=== PATIENT | male | born 1950 | race Hispanic/Latino ===

== ENCOUNTER 2018-01-23 08:00 | Observation (INO) | payer OTHER ==
[2018-01-23 08:08] VITALS: BMI 26.4
--- NOTE | 2018-01-23 08:20 | ED PDOC ---
HPI: Chest Pain Time Seen by Provider: 01/23/18 08:04 History Per: Patient Onset/Duration Of Symptoms: Days (1) Current Symptoms Are (Timing): Still Present Severity: Moderate Quality: Sharp Associated Symptoms: denies: Dyspnea, Syncope Modifying Factors: None Exacerbating Factors: None Alleviating Factors: None Additional Complaint(s): Sharp chest pain radiatingg to back assoc with generalized weakness. Denies palpitations, SOB or dizziness. Past Medical History Vital Signs: Last Vital Signs Temp 97.6 F 01/23/18 08:08 Pulse 84 01/23/18 08:08 Resp 17 01/23/18 08:08 BP 101/64 01/23/18 08:08 Pulse Ox 100 01/23/18 08:08 - Medical History PMH: Hypercholesterolemia Denies: Chronic Kidney Disease Other PMH: Raynauds disease - Family History Family History: States: Unknown Family Hx - Immunization History Hx Tetanus Toxoid Vaccination: Yes Hx Influenza Vaccination: No Hx Pneumococcal Vaccination: No - Home Medications Home Medications: Ambulatory Orders Medication Instructions Recorded Cefpodoxime [Vantin] 100 mg PO Q12 #20 tab 10/06/15 Multivitamin [Multi-Vitamin Daily] 1 tab PO DAILY 10/06/15 Bridgman-3 Acid Ethyl Esters [Lovaza] 1 gm PO DAILY 10/06/15 - Allergies Allergies/Adverse Reactions: Allergies Allergy/AdvReac Type Severity Reaction Status Date / Time Sulfa (Sulfonamide Allergy RASH Verified 10/06/15 13:50 Antibiotics) Review of Systems ROS Statement: Except As Marked, All Systems Reviewed And Found Negative Constitutional: Positive for: Weakness Cardiovascular: Positive for: Chest Pain Physical Exam - Reviewed Nursing Documentation Reviewed: Yes Vital Signs Reviewed: Yes - Physical Exam Appears: Positive for: Non-toxic, No Acute Distress Head Exam: Positive for: ATRAUMATIC, NORMAL INSPECTION, NORMOCEPHALIC Skin: Positive for: Normal Color, Warm, DRY Eye Exam: Positive for: EOMI, Normal appearance, PERRL ENT: Positive for: Normal ENT Inspection Neck: Positive for: Normal, Painless ROM Cardiovascular/Chest: Positive for: Irregularly Irregular Respiratory: Positive for: CNT, Normal Breath Sounds Gastrointestinal/Abdominal: Positive for: Normal Exam, Soft Back: Positive for: Normal Inspection Extremity: Positive for: Normal ROM Neurologic/Psych: Positive for: Alert, Oriented - ECG O2 Sat by Pulse Oximetry: 100 Medical Decision Making Medical Decision Making: Chadsvasc2 score 0. EKG afib with mod response. No acute ST changes Disposition - Clinical Impression Clinical Impression: New onset a-fib - Patient ED Disposition Is Patient to be Admitted: Yes - Disposition Disposition Time: 08:23 Condition: FAIR - Pt Status Changed To: Hospital Disposition Of: Observation - POA Present On Arrival: None
[2018-01-23 09:29] LABS: BASO % 0.8 % (0.0-2.0); EOS # 0.1 K/uL (0.0-0.7); EOS % 1.4 % (0.0-4.0); HEMOGLOBIN 15.1 g/dL (12.0-18.0); LYMPH # 1.3 K/uL (1.0-4.3); LYMPH % 26.7 % (20.0-40.0); MEAN CELL VOLUME 91.1 fl (80.0-94.0); MEAN PLATELET VOLUME 8.5 fl (7.2-11.7); MONO # 0.5 K/uL (0.0-0.8); MONO % 10.9 % (0.0-10.0); NEUT # 2.9 K/uL (1.8-7.0); NEUT % 60.2 % (50.0-75.0); NRBC % 0.2 % (0.0-0.0); RBC 4.89 Mil/uL (4.40-5.90); RED CELL DISTRIBUTION WIDTH 13.2 % (11.5-14.5); WHITE BLOOD COUNT 4.9 K/uL (4.8-10.8)
--- NOTE | 2018-01-23 09:33 | RAD ---
Date of service: 01/23/2018 HISTORY: Chest pain COMPARISON: Chest radiographs 10/06/2015. TECHNIQUE: Chest PA and lateral FINDINGS: LUNGS: No active pulmonary disease. PLEURA: No significant pleural effusion identified. No pneumothorax apparent. CARDIOVASCULAR: Normal. OSSEOUS STRUCTURES: No significant abnormalities. VISUALIZED UPPER ABDOMEN: Normal. OTHER FINDINGS: None. IMPRESSION: No interval acute cardiopulmonary disease appreciated.
[2018-01-23 09:42] LABS: BLOOD UREA NITROGEN 18 mg/dl (9-20); CALCIUM 9.1 mg/dL (8.4-10.2); GFR NON-AFRICAN AMERICAN > 60
[2018-01-23 09:43] LABS: ALB/GLOB RATIO 1.2 (1.0-2.1); ALT/SGPT 26 U/L (21-72); AST/SGOT 28 U/L (17-59)
[2018-01-23] MEDS ORDERED: Digoxin 500 mcg/2ml (0.5 mg/2ml) Inj IVP ONE (09:48)
[2018-01-23] MEDS ORDERED: Digoxin 500 mcg/2ml (0.5 mg/2ml) Inj ONE (09:54)
[2018-01-23 10:00] LABS: T4 6.83 ug/dl (5.5-11.0)
[2018-01-23 10:13] LABS: INR 1.1; PROTHROMBIN TIME 12.6 Seconds (9.8-13.1)
--- NOTE | 2018-01-23 11:21 | CARD ---
APPROVED REPORT Date of service: 01/23/2018 EKG Measurement Heart [id number] <Conclusion> Atrial fibrillation with rapid ventricular response Nonspecific ST abnormality Abnormal ECG
[2018-01-23] MEDS ORDERED: Enoxaparin 100 mg Syringe SC SCH ×2 (11:30→11:39)
--- NOTE | 2018-01-23 18:10 | CARD ---
APPROVED REPORT Date of service: 01/23/2018 EXAM: Two-dimensional and M-mode echocardiogram with Doppler and color Doppler. Other Information Quality : GoodRhythm : Atrial Fibrillation INDICATION New onset Atrial Fibrillation 2D DIMENSIONS IVSd1.06 (0.7-1.1cm)LVDd3.95 (3.9-5.9cm) LVOT Diameter1.60 (1.8-2.4cm)PWd0.98 (0.7-1.1cm) IVSs1.46 (0.8-1.2cm)LVDs2.13 (2.5-4.0cm) FS (%) 46.3 %PWs1.49 (0.8-1.2cm) M-Mode DIMENSIONS Left Atrium (MM)4.20 (2.5-4.0cm)Aortic Root2.63 (2.2-3.7cm) Aortic Valve AoV Peak Unsicewl186.1cm/sAoV VTI24.8cmAO Peak GR.5mmHg LVOT Peak Iterymru958.4cm/sLVOT VTI19.72cmAO Mean GR.3mmHg GERMAN (VMAX)0.18zl4EPW (VTI)0.74cm2 Mitral Valve E/A ratio0.0 TDI E/Lateral E'0.0E/Medial E'0.0 Tricuspid Valve TR Peak Uewilnmh110yx/sRAP IZCREYDV25nqOzBI Peak Gr.22mmHg [id number] LEFT VENTRICLE The left ventricle is normal size. There is normal left ventricular wall thickness. The left ventricular systolic function is normal. The estimated ejection fraction is 55-60% No regional wall motion abnormalities noted.. The left ventricular diastolic function cannot be assessed due to underlying atrial fibrillation. No left ventricle thrombus noted on this study. There is no ventricular septal defect visualized. There is no left ventricular aneurysm. There is no mass noted in the left ventricle. RIGHT VENTRICLE The right ventricle is normal size. There is normal right ventricular wall thickness. The right ventricular systolic function is normal. ATRIA The left atrium is mildly dilated. The right atrium size is normal. The interatrial septum is intact with no evidence for an atrial septal defect. AORTIC VALVE The aortic valve is normal in structure. No aortic regurgitation is present. There is no aortic valvular stenosis. There is no aortic valvular vegetation. MITRAL VALVE The mitral valve is normal in structure. There is no evidence of mitral valve prolapse. There is no mitral valve stenosis. There is mild mitral valve regurgitation noted. TRICUSPID VALVE The tricuspid valve is normal in structure. There is mild tricuspid valve regurgitation noted.RVSP is calculated at 23 mm Hg. There is no tricuspid valve prolapse or vegetation. There is no tricuspid valve stenosis. PULMONIC VALVE The pulmonary valve is normal in structure. There is no pulmonic valvular regurgitation. There is no pulmonic valvular stenosis. GREAT VESSELS The aortic root is normal in size. The ascending aorta is normal in size. The pulmonary artery is normal. The IVC is normal in size and collapses >50% with inspiration. PERICARDIAL EFFUSION There is no pericardial effusion. There is no pleural effusion. <Conclusion> The estimated ejection fraction is 55-60% The left ventricular diastolic function cannot be assessed due to underlying atrial fibrillation. The left atrium is mildly dilated. There is mild mitral valve regurgitation noted. There is mild tricuspid valve regurgitation noted. RVSP is calculated at 23 mm Hg.
--- NOTE | 2018-01-23 19:58 | CP.PCM.CON ---
History of Present Illness - History of Present Illness History of Present Illness: I was asked to evaluate patient by Dr Londono. Patient is a 68 year old male with no PMH who presents with chest pain and dyspnea. The patient states symptom have occurred for the last week. He feels dyspneic and fatigued. He developed chest pain one day prior to admission. He presented to [facility] and was found to be in atrial fibrillation with rapid ventricular response. The patient was given cardizem, and digoxin. He currently is in sinus rhythm. Review of Systems - Constitutional Constitutional: absent: As Per HPI, Anorexia, Chills, Daytime Sleepiness, Exce ssive Sweating, Fatigue, Fever, Frequent Falls, Headache, Increased Appetite, Lethargy, Malaise, Night Sweats, Snoring, Sleep Apnea, Weight Gain, Weight Loss, Weakness, Other - EENT Eyes: absent: As Per HPI, Blind Spots, Blurred Vision, Change in Vision, Decrea sed Night Vision, Diplopia, Discharge, Dry Eye, Exophthalmos, Floaters, Irritation, Itchy Eyes, Loss of Peripheral Vision, Pain, Photophobia, Requires Corrective Lenses, Sees Flashes, Spots in Vision, Tunnel Vision, Other Visual Disturbances, Loss of Vision, Other Ears: absent: As Per HPI, Decreased Hearing, Ear Discharge, Ear Pain, Tinnitus, Abnormal Hearing, Disequilibrium, Dizziness, Other Nose/Mouth/Throat: absent: As Per HPI, Epistaxis, Nasal Congestion, Nasal Discharge, Nasal Obstruction, Nasal Trauma, Nose Pain, Post Nasal Drip, Sinus Pa in, Sinus Pressure, Bleeding Gums, Change in Voice, Dental Pain, Dry Mouth, Dysphagia, Halitosis, Hoarsness, Lip Swelling, Mouth Lesions, Mouth Pain, Odynophagia, Sore Throat, Throat Swelling, Tongue Swelling, Facial Pain, Neck Pain, Neck Mass, Other - Cardiovascular Cardiovascular: Chest Pain, Dyspnea - Respiratory Respiratory: absent: As Per HPI, Cough, Dyspnea, Hemoptysis, Dyspnea on Exertion, Wheezing, Snoring, Stridor, Pain on Inspiration, Chest Congestion, Excessive Mucous Production, Change in Mucous Color, Pain with Coughing, Other - Gastrointestinal Gastrointestinal: absent: As Per HPI, Abdominal Pain, Belching, Bloating, Change in Bowel Habits, Change in Stool Character, Coffee Ground Emesis, Constipation, Cramping, Diarrhea, Dyspepsia, Dysphagia, Early Satiety, Excessive Flatus, Fecal Incontinence, Heartburn, Hematemesis, Hematochezia, Loose Stools, Melena, Na usea, Odynophagia, Temesmus, Vomiting, Other - Genitourinary Genitourinary: absent: As Per HPI, Change in Urinary Stream, Difficulty Urinating, Dysuria, Flank Pain, Hematuria, Pyuria, Nocturia, Urinary Incontinence, Urinary Frequency, Urinary Hesitance, Urinary Urgency, Voiding Freq/Small Amts, Freq UTI, Hx Renal/Bladder Calculi, Hx /Renal Surgery, Bladder Distension, Other - Musculoskeletal Musculoskeletal: absent: As Per HPI, Abnormal Gait, Arthralgias, Atrophy, Back Pain, Deformity, Joint Swelling, Limited Range of Motion, Loss of Height, Muscle Cramps, Muscle Weakness, Myalgias, Neck Pain, Numbness, Radiating Pain into Limb, Stiffness, Tingling, Other - Integumentary Integumentary: absent: As Per HPI, Acne, Alopecia, Bleeding Lesions, Change in Hair, Change in Nails, Change in Pigmentation, Changing Lesions, Dry Skin, Erythema, Furuncle, Hirsutism, Lesions, New Lesions, Non-Healing Lesions, Photosensitivity, Pruritus, Rash, Skin Pain, Skin Ulcer, Sores, Striae, S welling, Unusual Bruising, Wounds, Jaundice, Other - Neurological Neurological: absent: As Per HPI, Abnormal Gait, Abnormal Hearing, Abnormal Movements, Abnormal Speech, Behavioral Changes, Burning Sensations, Confusion, Convulsions, Disequilibrium, Dizziness, Numbness, Focal Weakness, Frequent Falls, Headaches, Lack of Coordination, Loss of Vision, Memory Loss, Paresthesias, Radicular Pain, Restless Legs, Sensory Deficit, Syncope, Tingling, Tremor, Vertigo, Weakness, Other Visual Disturbances, Other - Psychiatric Psychiatric: absent: As Per HPI, Abnormal Sleep Pattern, Anhedonia, Anxiety, Auditory Hallucinations, Behavioral Changes, Change in Appetite, Change in Libido, Confusion, Depression, Difficulty Concentrating, Hallucinations, Homicidal Ideation, Hopelessness, Irritability, Memory Loss, Mood Swings, Panic Attacks, Paranoia, Suicidal Ideation, Visual Hallucinations, Tactile Hallucinations, Other - Endocrine Endocrine: absent: As Per HPI, Change in Body Appearance, Change in Libido, Cold Intolorance, Deepening of Voice, Excessive Sweating, Fatigue, Flushing, Heat Intolorance, Increase in Ring/Shoe/Hat Size, Palpitations, Polydipsia, Polyphagia, Polyuria, Other - Hematologic/Lymphatic Hematologic: absent: As Per HPI, Easy Bleeding, Easy Bruising, Lymphadenopathy, Other Past Patient History - Past Medical History & Family History Past Medical History?: Yes - Past Social History Smoking Status: Former Smoker - CARDIAC Hx Cardiac Disorders: Yes Hx Atrial Fibrillation: Yes Hx Hypercholesterolemia: Yes - PULMONARY Hx Respiratory Disorders: No - NEUROLOGICAL Hx Neurological Disorder: No - HEENT Hx HEENT Problems: No - RENAL Hx Chronic Kidney Disease: No - ENDOCRINE/METABOLIC Hx Endocrine Disorders: No - HEMATOLOGICAL/ONCOLOGICAL Hx Blood Disorders: No Hx AIDS: No Hx Human Immunodeficiency Virus (HIV): No - INTEGUMENTARY Hx Dermatological Problems: No - MUSCULOSKELETAL/RHEUMATOLOGICAL Hx Musculoskeletal Disorders: Yes Hx Falls: No - GASTROINTESTINAL Hx Gastrointestinal Disorders: No - GENITOURINARY/GYNECOLOGICAL Hx Genitourinary Disorders: No - PSYCHIATRIC Hx Psychophysiologic Disorder: No Hx Substance Use: No - SURGICAL HISTORY Hx Surgeries: Yes Hx Orthopedic Surgery: Yes Other/Comment: Bilateral Achilles tendon repair; Right medial meniscal tear repair. - ANESTHESIA Hx Anesthesia: Yes Hx Anesthesia Reactions: No Hx Malignant Hyperthermia: No Has any member of the family had a problem w/ anesthesia?: No Meds Allergies/Adverse Reactions: Allergies Allergy/AdvReac Type Severity Reaction Status Date / Time Sulfa (Sulfonamide Allergy RASH Verified 01/23/18 08:47 Antibiotics) Physical Exam - Constitutional Appears: Non-toxic - Head Exam Head Exam: NORMAL INSPECTION - Eye Exam Eye Exam: Normal appearance - ENT Exam ENT Exam: Mucous Membranes Moist - Neck Exam Neck exam: Positive for: Full Rom - Respiratory Exam Respiratory Exam: Decreased Breath Sounds - Cardiovascular Exam Cardiovascular Exam: REGULAR RHYTHM - GI/Abdominal Exam GI & Abdominal Exam: Normal Bowel Sounds - Rectal Exam Rectal Exam: Deferred - Extremities Exam Extremities exam: Negative for: pedal edema - Back Exam Back exam: NORMAL INSPECTION - Neurological Exam Neurological exam: Alert, Oriented x3 - Psychiatric Exam Psychiatric exam: Normal Affect - Skin Skin Exam: Normal Color Results - Vital Signs Recent Vital Signs: Last Vital Signs Temp 97.8 F 01/23/18 19:33 Pulse 53 L 01/23/18 19:33 Resp 20 01/23/18 19:33 BP 101/55 L 01/23/18 19:33 Pulse Ox 99 01/23/18 19:33 - Labs Result Diagrams: 01/23/18 09:17 01/23/18 09:17 Labs: Laboratory Results - last 24 hr 01/23/18 01/23/18 01/23/18 05:45 09:17 09:17 WBC 4.9 RBC 4.89 Hgb 15.1 Hct 44.5 MCV 91.1 MCH 31.0 MCHC 34.0 RDW 13.2 Plt Count 218 MPV 8.5 Neut % (Auto) 60.2 Lymph % (Auto) 26.7 Callahan % (Auto) 10.9 H Eos % (Auto) 1.4 Baso % (Auto) 0.8 Neut # (Auto) 2.9 Lymph # (Auto) 1.3 Callahan # (Auto) 0.5 Eos # (Auto) 0.1 Baso # (Auto) 0.0 PT 12.6 INR 1.1 Sodium 135 Potassium 4.1 Chloride 99 Carbon Dioxide 28 Anion Gap 12 BUN 18 Creatinine 1.0 Est GFR ( Amer) > 60 Est GFR (Non-Af Amer) > 60 Random Glucose 108 Calcium 9.1 Total Bilirubin 0.5 AST 28 ALT 26 Alkaline Phosphatase 51 Troponin I < 0.0120 Total Protein 7.2 Albumin 4.0 Globulin 3.2 Albumin/Globulin Ratio 1.2 Thyroxine (T4) 6.83 TSH 3rd Generation 5.01 H - EKG Data EKG Interpreted by: Myself EKG shows normal: Sinus rhythm Assessment & Plan (1) Atrial fibrillation Assessment and Plan: likely PAF. The risk of CVA associated with afib were discussed with the patient. echocardiogram reviewed mild LA dilatation. recommend anticoagulation for stoke prevention. will start Xarelto. Cardiovascular risk factor modificaiton was discussed. monitor on telemetru overnight. If remains is sinus rhythm can d/c home in am. recommend outpatient stress test and event monitor. Status: Acute
[2018-01-24 00:34] VITALS: O2SAT 97
[2018-01-24 05:30] LABS: BASO % 0.7 % (0.0-2.0); EOS # 0.1 K/uL (0.0-0.7); EOS % 1.7 % (0.0-4.0); HEMOGLOBIN 14.4 g/dL (12.0-18.0); LYMPH # 2.3 K/uL (1.0-4.3); LYMPH % 35.8 % (20.0-40.0); MEAN CORPUSCULAR HEMOGLOBIN 31.3 pg (27.0-31.0); MEAN CORPUSCULAR HGB CONC 34.4 g/dL (33.0-37.0); MEAN PLATELET VOLUME 8.3 fl (7.2-11.7); MONO # 0.8 K/uL (0.0-0.8); MONO % 11.5 % (0.0-10.0); NEUT # 3.3 K/uL (1.8-7.0); NEUT % 50.3 % (50.0-75.0); NRBC % 0.1 % (0.0-0.0); RBC 4.59 Mil/uL (4.40-5.90); RED CELL DISTRIBUTION WIDTH 13.4 % (11.5-14.5); WHITE BLOOD COUNT 6.5 K/uL (4.8-10.8)
[2018-01-24 05:44] LABS: ALB/GLOB RATIO 1.1 (1.0-2.1); ALBUMIN 3.7 g/dL (3.5-5.0); ALT/SGPT 22 U/L (21-72); AST/SGOT 24 U/L (17-59); BLOOD UREA NITROGEN 18 mg/dl (9-20); GFR NON-AFRICAN AMERICAN > 60
[2018-01-24 06:52] VITALS: PULSE 53; TEMP 97.8
[2018-01-24] MEDS ORDERED: Influenza Vaccine 60 MCG/0.5 ML SYR (3 yr & up) IM ONE (07:14)
--- NOTE | 2018-01-24 09:31 | CP.PCM.HP ---
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 given cardizem and dig and converted. seen by dr greene. bw noted. echo noted. offers no complaints at present. no f/c, n/v/d. tsh slightly elevated Present on Admission - Present on Admission Any Indicators Present on Admission: No Review of Systems - Constitutional Constitutional: As Per HPI, Fatigue, Weakness - Cardiovascular Cardiovascular: As Per HPI, Chest Pain Past Patient History - Past Medical History & Family History Past Medical History?: Yes - Past Social History Smoking Status: Former Smoker - CARDIAC Hx Cardiac Disorders: Yes Hx Atrial Fibrillation: Yes Hx Hypercholesterolemia: Yes - PULMONARY Hx Respiratory Disorders: No - NEUROLOGICAL Hx Neurological Disorder: No - HEENT Hx HEENT Problems: No - RENAL Hx Chronic Kidney Disease: No - ENDOCRINE/METABOLIC Hx Endocrine Disorders: No - HEMATOLOGICAL/ONCOLOGICAL Hx Blood Disorders: No Hx AIDS: No Hx Human Immunodeficiency Virus (HIV): No - INTEGUMENTARY Hx Dermatological Problems: No - MUSCULOSKELETAL/RHEUMATOLOGICAL Hx Musculoskeletal Disorders: Yes Hx Falls: No - GASTROINTESTINAL Hx Gastrointestinal Disorders: No - GENITOURINARY/GYNECOLOGICAL Hx Genitourinary Disorders: No - PSYCHIATRIC Hx Psychophysiologic Disorder: No Hx Substance Use: No - SURGICAL HISTORY Hx Surgeries: Yes Hx Orthopedic Surgery: Yes Other/Comment: Bilateral Achilles tendon repair; Right medial meniscal tear repair. - ANESTHESIA Hx Anesthesia: Yes Hx Anesthesia Reactions: No Hx Malignant Hyperthermia: No Has any member of the family had a problem w/ anesthesia?: No Meds Home Medications: Home Medication List Medication Instructions Recorded Confirmed Type Rivaroxaban [Xarelto] 20 mg PO QD5 #30 tab 01/24/18 Rx Allergies/Adverse Reactions: Allergies Allergy/AdvReac Type Severity Reaction Status Date / Time Sulfa (Sulfonamide Allergy RASH Verified 01/23/18 08:47 Antibiotics) Physical Exam - Constitutional Appears: Well, Non-toxic, No Acute Distress - Head Exam Head Exam: ATRAUMATIC, NORMAL INSPECTION, NORMOCEPHALIC - Eye Exam Eye Exam: EOMI, Normal appearance, PERRL Pupil Exam: NORMAL ACCOMODATION, PERRL - ENT Exam ENT Exam: Mucous Membranes Moist, Normal Exam - Neck Exam Neck exam: Positive for: Normal Inspection - Respiratory Exam Respiratory Exam: Clear to Auscultation Bilateral, NORMAL BREATHING PATTERN - Cardiovascular Exam Cardiovascular Exam: REGULAR RHYTHM, RRR, +S1, +S2 - GI/Abdominal Exam GI & Abdominal Exam: Normal Bowel Sounds, Soft. absent: Tenderness - Extremities Exam Extremities exam: Positive for: full ROM, normal capillary refill, normal inspection, pedal pulses present - Back Exam Back exam: NORMAL INSPECTION - Neurological Exam Neurological exam: Alert, CN II-XII Intact, Normal Gait, Oriented x3, Reflexes Normal - Psychiatric Exam Psychiatric exam: Normal Affect, Normal Mood - Skin Skin Exam: Dry, Intact, Normal Color, Warm Results - Vital Signs Recent Vital Signs: Last Vital Signs Temp 97.8 F 01/24/18 06:51 Pulse 53 L 01/24/18 06:51 Resp 16 01/24/18 06:51 BP 107/66 01/24/18 06:51 Pulse Ox 97 01/24/18 06:51 - Labs Result Diagrams: 01/24/18 05:16 01/24/18 05:16 Labs: Laboratory Results - last 24 hr 01/23/18 01/23/18 01/23/18 05:45 09:17 09:17 WBC 4.9 RBC 4.89 Hgb 15.1 Hct 44.5 MCV 91.1 MCH 31.0 MCHC 34.0 RDW 13.2 Plt Count 218 MPV 8.5 Neut % (Auto) 60.2 Lymph % (Auto) 26.7 Moore % (Auto) 10.9 H Eos % (Auto) 1.4 Baso % (Auto) 0.8 Neut # (Auto) 2.9 Lymph # (Auto) 1.3 Moore # (Auto) 0.5 Eos # (Auto) 0.1 Baso # (Auto) 0.0 PT 12.6 INR 1.1 Sodium 135 Potassium 4.1 Chloride 99 Carbon Dioxide 28 Anion Gap 12 BUN 18 Creatinine 1.0 Est GFR ( Amer) > 60 Est GFR (Non-Af Amer) > 60 Random Glucose 108 Calcium 9.1 Phosphorus Magnesium Total Bilirubin 0.5 AST 28 ALT 26 Alkaline Phosphatase 51 Troponin I < 0.0120 Total Protein 7.2 Albumin 4.0 Globulin 3.2 Albumin/Globulin Ratio 1.2 Thyroxine (T4) 6.83 TSH 3rd Generation 5.01 H 01/24/18 01/24/18 05:16 05:16 WBC 6.5 RBC 4.59 Hgb 14.4 Hct 41.7 MCV 91.0 MCH 31.3 H MCHC 34.4 RDW 13.4 Plt Count 225 MPV 8.3 Neut % (Auto) 50.3 Lymph % (Auto) 35.8 Moore % (Auto) 11.5 H Eos % (Auto) 1.7 Baso % (Auto) 0.7 Neut # (Auto) 3.3 Lymph # (Auto) 2.3 Moore # (Auto) 0.8 Eos # (Auto) 0.1 Baso # (Auto) 0.0 PT INR Sodium 134 Potassium 4.6 Chloride 102 Carbon Dioxide 26 Anion Gap 11 BUN 18 Creatinine 1.1 Est GFR ( Amer) > 60 Est GFR (Non-Af Amer) > 60 Random Glucose 101 Calcium 9.0 Phosphorus 3.8 Magnesium 2.3 Total Bilirubin 0.6 AST 24 ALT 22 Alkaline Phosphatase 45 Troponin I 0.0340 Total Protein 6.9 Albumin 3.7 Globulin 3.3 Albumin/Globulin Ratio 1.1 Thyroxine (T4) TSH 3rd Generation Assessment & Plan (1) DVT prophylaxis Assessment and Plan: scd margot e hose lovenox changed to xarelto Status: Acute (2) Atrial fibrillation Assessment and Plan: cardio xarelto dig in er. cardizem gtt until pt converted then gtt dc nsr 50s at present Status: Acute Decision To Admit - Pt Status Changed To: Hospital Disposition Of: Observation - . Bed Request Type: Telemetry Admitting Physician: Christofer Matta
[2018-01-24 09:32] VITALS: BP 109/67; RESP 20
== END 2018-01-24 13:56 | disposition home or self-care (01) ==
LOC: H.ER 08:00 → H.ERHOLD 08:22 → H.TEL 10:20
PROVIDERS: ADMIT Family Medicine; ATTEND Family Medicine
DX: I48.0 Paroxysmal atrial fibrillation (principal); E78.00 Pure hypercholesterolemia, unspecified; I73.00 Raynaud's syndrome without gangrene; Z87.891 Personal history of nicotine dependence; Z79.01 Long term (current) use of anticoagulants; Z88.2 Allergy status to sulfonamides
CPT/HCPCS: 36415; 71046; 80053; 83735; 84100; 84436; 84443; 84484; 85025; 85610; 93005; 93306; 96374; 99285; G0378; J1160; J1650

== ENCOUNTER 2018-04-23 10:33 | Emergency (ER) | payer OTHER, MEDICARE ==
[2018-04-23 10:34] VITALS: BMI 26.4
[2018-04-23] MEDS ORDERED: Digoxin 500 mcg/2ml (0.5 mg/2ml) Inj IVP STA ×2 (11:29→13:49)
--- NOTE | 2018-04-23 11:33 | ED PDOC ---
HPI: Hypertension/Hypotension Time Seen by Provider: 04/23/18 11:13 Chief Complaint (Nursing): Palpitations Chief Complaint (Provider): Palpitations History Per: Patient, Family History/Exam Limitations: no limitations Additional Complaint(s): Pt reports palpitations last night that resolved by this AM. Pt was started on Zithromax 2 days ago for URI. Pt was dx with a fib in 01/2018, started on Xarelto, stopped taking 3 weeks ago. Took 4 ASA and Xarelto last PM after symptoms started. Denies CP, SOB. Past Medical History Reviewed: Nursing Documentation, Vital Signs Vital Signs: Last Vital Signs Temp Pulse 118 H 04/23/18 11:03 Resp BP Pulse Ox - Medical History PMH: Atrial Fibrillation, Hypercholesterolemia Denies: HIV, Chronic Kidney Disease - Family History Family History: States: Unknown Family Hx - Living Arrangements Living Arrangements: With Family - Social History Current smoker - smoking cessation education provided: No Alcohol: None - Immunization History Hx Tetanus Toxoid Vaccination: Yes Hx Influenza Vaccination: No Hx Pneumococcal Vaccination: No - Home Medications Home Medications: Ambulatory Orders Medication Instructions Recorded Azithromycin [Zithromax] 250 mg PO ASDIR 04/23/18 Cholecalciferol [Vitamin D 1000 IU] 1 tab PO DAILY 04/23/18 Fluticasone Nasal [Flonase] 1 spray RAMSEY Q12 PRN 04/23/18 Multivitamin [Multi-Vitamin Daily] 1 tab PO DAILY 04/23/18 Rivaroxaban [Xarelto] 20 mg PO QPM 04/23/18 Saw Shiloh Fruit [Saw Shiloh] 1 cap PO DAILY 04/23/18 - Allergies Allergies/Adverse Reactions: Allergies Allergy/AdvReac Type Severity Reaction Status Date / Time Sulfa (Sulfonamide Allergy RASH Verified 01/23/18 08:47 Antibiotics) Review of Systems Constitutional: Negative for: Fever, Chills Cardiovascular: Positive for: Palpitations. Negative for: Chest Pain Respiratory: Negative for: Cough, Shortness of Breath Musculoskeletal: Negative for: Neck Pain Skin: Negative for: Rash, Lesions Neurological: Negative for: Headache, Dizziness Physical Exam - Reviewed Nursing Documentation Reviewed: Yes Vital Signs Reviewed: Yes - Physical Exam Appears: Positive for: Well, No Acute Distress Head Exam: Positive for: ATRAUMATIC, NORMAL INSPECTION Skin: Positive for: Normal Color, Warm, Dry Eye Exam: Positive for: Normal appearance, EOMI, PERRL Cardiovascular/Chest: Positive for: Tachycardia, Irregularly Irregular Respiratory: Positive for: Normal Breath Sounds. Negative for: Rales, Rhonchi, Wheezing Extremity: Positive for: Normal ROM Neurologic/Psych: Positive for: Alert, Oriented - Laboratory Results Result Diagrams: 04/23/18 12:00 04/23/18 12:00 - Critical Care Total Time (In Min): 45 Medical Decision Making Medical Decision Makin yo male with a fib with RVR. - labs - EKG - CXR - Digoxin 0.5 mg IV 11:[address] Francisco, agrees with Digoxin 0.5 mg IV. 13:30 Remains tachycardia, addition 0.25 mg IV Digoxin ordered. 15:00 Remains tachycardic, Cardizem ordered. Disposition - Clinical Impression Clinical Impression: Atrial fibrillation with RVR - Patient ED Disposition Is Patient to be Admitted: Yes - Disposition Disposition Time: 17:01 Condition: STABLE - Pt Status Changed To: Hospital Disposition Of: Inpatient - Admit Certification Admit to Inpatient:: After my assessment, the patient will require hospitalization for at least two midnights. This is because of the severity of symptoms shown, intensity of services needed, and/or the medical risk in this patient being treated as an outpatient. - POA Present On Arrival: None
[2018-04-23] MEDS ORDERED: Digoxin 500 mcg/2ml (0.5 mg/2ml) Inj ONE ×2 (11:51→14:10)
[2018-04-23 12:22] VITALS: RESP 18
[2018-04-23 12:36] LABS: BASO # 0.1 K/uL (0.0-0.2); BASO % 0.6 % (0.0-2.0); EOS # 0.1 K/uL (0.0-0.7); EOS % 0.7 % (0.0-4.0); HEMOGLOBIN 12.9 g/dL (12.0-18.0); LYMPH # 1.3 K/uL (1.0-4.3); LYMPH % 14.2 % (20.0-40.0); MEAN CELL VOLUME 90.3 fl (80.0-94.0); MEAN CORPUSCULAR HEMOGLOBIN 30.6 pg (27.0-31.0); MEAN CORPUSCULAR HGB CONC 33.9 g/dL (33.0-37.0); MEAN PLATELET VOLUME 8.7 fl (7.2-11.7); MONO # 1.1 K/uL (0.0-0.8); MONO % 11.6 % (0.0-10.0); NEUT # 6.7 K/uL (1.8-7.0); NEUT % 72.9 % (50.0-75.0); RBC 4.22 Mil/uL (4.40-5.90); RED CELL DISTRIBUTION WIDTH 13.6 % (11.5-14.5); WHITE BLOOD COUNT 9.1 K/uL (4.8-10.8)
[2018-04-23 12:38] LABS: INR 1.8; PROTHROMBIN TIME 20.5 Seconds (9.8-13.1)
[2018-04-23 12:41] LABS: PARTIAL THROMBOPLASTIN TIME 44.7 Seconds (25.6-37.1)
[2018-04-23 12:56] LABS: ALB/GLOB RATIO 1.1 (1.0-2.1); ALBUMIN 3.8 g/dL (3.5-5.0); ALT/SGPT 35 U/L (21-72); AST/SGOT 41 U/L (17-59); BLOOD UREA NITROGEN 21 mg/dl (9-20); CALCIUM 8.9 mg/dL (8.4-10.2); GFR NON-AFRICAN AMERICAN > 60
--- NOTE | 2018-04-23 13:20 | RAD ---
Date of service: 04/23/2018 HISTORY: SOB COMPARISON: 01/23/2018. FINDINGS: LUNGS: No active pulmonary disease. PLEURA: No significant pleural effusion identified, no pneumothorax apparent. CARDIOVASCULAR: No atherosclerotic calcification present Normal. OSSEOUS STRUCTURES: No significant abnormalities. VISUALIZED UPPER ABDOMEN: Normal. OTHER FINDINGS: None. IMPRESSION: No active disease. No significant interval change compared to the prior examination(s).
[2018-04-23] MEDS ORDERED: Sodium Chloride 0.9% 50 ML IV ONE (13:47)
[2018-04-23] MEDS ORDERED: Iodixanol 320 MG/ML 100 ML BOTTLE IV ONE (13:47)
[2018-04-23 14:19] VITALS: PULSE 118
[2018-04-23 15:09] VITALS: TEMP 99.2
--- NOTE | 2018-04-23 15:28 | CT ---
Date of service: 04/23/2018 PROCEDURE: CT Chest with contrast (Pulmonary Angiogram) HISTORY: Palpitations COMPARISON: Plain radiograph from 04/23/2018. CT abdomen and pelvis 10/06/2015. TECHNIQUE: Axial computed tomography images were obtained of the chest in the pulmonary arterial phase of enhancement. Coronal and sagittal reformatted images were created and reviewed. Intravenous contrast dose: 99 cc Visipaque 320 Radiation dose: Total exam DLP = 406.1 mGy-cm. This CT exam was performed using one or more of the following dose reduction techniques: Automated exposure control, adjustment of the mA and/or kV according to patient size, and/or use of iterative reconstruction technique. FINDINGS: PULMONARY ARTERIES: There are no filling defects in the pulmonary arteries to suggest acute pulmonary embolism. AORTA: No acute findings. No thoracic aortic aneurysm. No aortic atherosclerotic calcification or mural plaque present. LUNGS: The lungs are well inflated. There is linear subsegmental atelectasis in the lung bases. No nodule, mass or pulmonary consolidation. PLEURAL SPACES: No effusion or pneumothorax. HEART: No cardiomegaly. No significant pericardial effusion. LYMPH NODES: Subcentimeter mediastinal lymph nodes are likely reactive in etiology. No hilar lymphadenopathy.. BONES, CHEST WALL: Within normal limits for the patient's age. No fracture or destructive lesion. There is a hemangioma in the T4 vertebral body on the right. OTHER FINDINGS: There is a large gastric diverticulum arising from the greater curvature. There is a small sliding hiatal hernia IMPRESSION: No CTA evidence for acute pulmonary embolism. Subsegmental atelectasis in the lower lobes. No focal consolidation, pleural effusion or pneumothorax. 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 Evaluation of the stomach is limited in the absence of oral contrast. If clinically indicated, correlation with EGD may be performed.
--- NOTE | 2018-04-23 16:52 | CARD ---
APPROVED REPORT Date of service: 04/23/2018 EKG Measurement Heart [id number] <Conclusion> Atrial fibrillation with rapid ventricular response Low voltage QRS Nonspecific ST and T wave abnormality Abnormal ECG
[2018-04-23] MEDS ORDERED: Sodium Chloride 0.9% 1,000 ML IV STA (16:59)
--- NOTE | 2018-04-23 18:43 | CP.PCM.CON ---
History of Present Illness - History of Present Illness History of Present Illness: I was asked to see patient by Dr Londono and Sr Matta. Patient seen 04/23/18 [id number] Patient is a 68 year old male with paroxysmal atrial fibrillation who presents with palpitations. The patient developed had a recent URI and was started on medical therapy. He developed palpitations and presented to [facility]. he was found to be in atrial fibrillation with rapid ventricular response. The patinet was given digoxin inthe ER. A cardizem drip was to be started when he converted to sinus rhythm. He denies chest pain. The patient had a previous episode in January. Full cardiac workup including echo and outpatient stress test were neg ative. Review of Systems - Constitutional Constitutional: absent: As Per HPI, Anorexia, Chills, Daytime Sleepiness, Excessive Sweating, Fatigue, Fever, Frequent Falls, Headache, Increased Appetite, Lethargy, Malaise, Night Sweats, Snoring, Sleep Apnea, Weight Gain, Weight Loss, Weakness, Other - EENT Eyes: absent: As Per HPI, Blind Spots, Blurred Vision, Change in Vision, Decreased Night Vision, Diplopia, Discharge, Dry Eye, Exophthalmos, Floaters, Irritation, Itchy Eyes, Loss of Peripheral Vision, Pain, Photophobia, Requires Corrective Lenses, Sees Flashes, Spots in Vision, Tunnel Vision, Other Visual Disturbances, Loss of Vision, Other Ears: absent: As Per HPI, Decreased Hearing, Ear Discharge, Ear Pain, Tinnitus, Abnormal Hearing, Disequilibrium, Dizziness, Other Nose/Mouth/Throat: absent: As Per HPI, Epistaxis, Nasal Congestion, Nasal Discharge, Nasal Obstruction, Nasal Trauma, Nose Pain, Post Nasal Drip, Sinus Pain, Sinus Pressure, Bleeding Gums, Change in Voice, Dental Pain, Dry Mouth, Dysphagia, Halitosis, Hoarsness, Lip Swelling, Mouth Lesions, Mouth Pain, Odynophagia, Sore Throat, Throat Swelling, Tongue Swelling, Facial Pain, Neck Pain, Neck Mass, Other - Cardiovascular Cardiovascular: Palpitations, Rapid Heart Rate - Respiratory Respiratory: absent: As Per HPI, Cough, Dyspnea, Hemoptysis, Dyspnea on Exertion, Wheezing, Snoring, Stridor, Pain on Inspiration, Chest Congestion, Excessive Mucous Production, Change in Mucous Color, Pain with Coughing, Other - Gastrointestinal Gastrointestinal: absent: As Per HPI, Abdominal Pain, Belching, Bloating, Change in Bowel Habits, Change in Stool Character, Coffee Ground Emesis, Constipation, Cramping, Diarrhea, Dyspepsia, Dysphagia, Early Satiety, Excessive Flatus, Fecal Incontinence, Heartburn, Hematemesis, Hematochezia, Loose Stools, Melena, Nause a, Odynophagia, Temesmus, Vomiting, Other - Genitourinary Genitourinary: absent: As Per HPI, Change in Urinary Stream, Difficulty Urinating, Dysuria, Flank Pain, Hematuria, Pyuria, Nocturia, Urinary Incontinence, Urinary Frequency, Urinary Hesitance, Urinary Urgency, Voiding Freq/Small Amts, Freq UTI, Hx Renal/Bladder Calculi, Hx /Renal Surgery, Bladder Distension, Other - Musculoskeletal Musculoskeletal: absent: As Per HPI, Abnormal Gait, Arthralgias, Atrophy, Back Pain, Deformity, Joint Swelling, Limited Range of Motion, Loss of Height, Muscle Cramps, Muscle Weakness, Myalgias, Neck Pain, Numbness, Radiating Pain into Limb, Stiffness, Tingling, Other - Integumentary Integumentary: absent: As Per HPI, Acne, Alopecia, Bleeding Lesions, Change in Hair, Change in Nails, Change in Pigmentation, Changing Lesions, Dry Skin, Erythema, Furuncle, Hirsutism, Lesions, New Lesions, Non-Healing Lesions, Photosensitivity, Pruritus, Rash, Skin Pain, Skin Ulcer, Sores, Striae, Swel ling, Unusual Bruising, Wounds, Jaundice, Other - Neurological Neurological: absent: As Per HPI, Abnormal Gait, Abnormal Hearing, Abnormal Movements, Abnormal Speech, Behavioral Changes, Burning Sensations, Confusion, Convulsions, Disequilibrium, Dizziness, Numbness, Focal Weakness, Frequent Falls, Headaches, Lack of Coordination, Loss of Vision, Memory Loss, Paresthesias, Radicular Pain, Restless Legs, Sensory Deficit, Syncope, Tingling, Tremor, Vertigo, Weakness, Other Visual Disturbances, Other - Psychiatric Psychiatric: absent: As Per HPI, Abnormal Sleep Pattern, Anhedonia, Anxiety, Auditory Hallucinations, Behavioral Changes, Change in Appetite, Change in Libido, Confusion, Depression, Difficulty Concentrating, Hallucinations, Homicidal Ideation, Hopelessness, Irritability, Memory Loss, Mood Swings, Panic Attacks, Paranoia, Suicidal Ideation, Visual Hallucinations, Tactile Hallucinations, Other - Endocrine Endocrine: absent: As Per HPI, Change in Body Appearance, Change in Libido, Cold Intolorance, Deepening of Voice, Excessive Sweating, Fatigue, Flushing, Heat Intolorance, Increase in Ring/Shoe/Hat Size, Palpitations, Polydipsia, Polyphagia, Polyuria, Other - Hematologic/Lymphatic Hematologic: absent: As Per HPI, Easy Bleeding, Easy Bruising, Lymphadenopathy, Other Past Patient History - Past Medical History & Family History Past Medical History?: Yes - Past Social History Alcohol: None - CARDIAC Hx Atrial Fibrillation: Yes Hx Hypercholesterolemia: Yes - PULMONARY Hx Respiratory Disorders: No - NEUROLOGICAL Hx Neurological Disorder: No - HEENT Hx HEENT Problems: No - RENAL Hx Chronic Kidney Disease: No - ENDOCRINE/METABOLIC Hx Endocrine Disorders: No - HEMATOLOGICAL/ONCOLOGICAL Hx Human Immunodeficiency Virus (HIV): No - INTEGUMENTARY Hx Dermatological Problems: No - MUSCULOSKELETAL/RHEUMATOLOGICAL Hx Musculoskeletal Disorders: Yes Hx Falls: No - GASTROINTESTINAL Hx Gastrointestinal Disorders: No - GENITOURINARY/GYNECOLOGICAL Hx Genitourinary Disorders: No - PSYCHIATRIC Hx Psychophysiologic Disorder: No Hx Substance Use: No - SURGICAL HISTORY Hx Surgeries: Yes Hx Orthopedic Surgery: Yes Other/Comment: Bilateral Achilles tendon repair; Right medial meniscal tear r epair. - ANESTHESIA Hx Anesthesia: Yes Hx Anesthesia Reactions: No Hx Malignant Hyperthermia: No Meds Allergies/Adverse Reactions: Allergies Allergy/AdvReac Type Severity Reaction Status Date / Time Sulfa (Sulfonamide Allergy RASH Verified 01/23/18 08:47 Antibiotics) - Medications Medications: Current Medications Cholecalciferol (Vitamin D) 1,000 intlu PO DAILY [facility] Fluticasone Propionate (Flonase) 1 spr RAMSEY Q12 PRN PRN Reason: Nasal congestion Home Med (Saw [place] Fruit [Saw [place]]) 1 cap PO DAILY DARCI Diltiazem HCl 125 mg/ Sodium (Chloride) 125 mls @ 5 mls/hr IV .Q24H ONE; Protocol Stop: 04/24/18 16:52 Sodium Chloride (Sodium Chloride 0.9%) 1,000 mls @ 100 mls/hr IV .Q10H STA Stop: 04/24/18 02:58 Multivitamins/Minerals (Therapeutic-M Tab) 1 tab PO DAILY [facility] Rivaroxaban (Xarelto) 20 mg PO QPM [facility]; Protocol Physical Exam - Constitutional Appears: Non-toxic - Head Exam Head Exam: NORMAL INSPECTION - Eye Exam Eye Exam: Normal appearance - ENT Exam ENT Exam: Mucous Membranes Moist - Neck Exam Neck exam: Positive for: Full Rom - Respiratory Exam Respiratory Exam: NORMAL BREATHING PATTERN - Cardiovascular Exam Cardiovascular Exam: REGULAR RHYTHM - GI/Abdominal Exam GI & Abdominal Exam: Normal Bowel Sounds - Rectal Exam Rectal Exam: Deferred - Extremities Exam Extremities exam: Negative for: pedal edema - Back Exam Back exam: NORMAL INSPECTION - Neurological Exam Neurological exam: Alert, Oriented x3 - Psychiatric Exam Psychiatric exam: Normal Affect - Skin Skin Exam: Normal Color Results - Vital Signs Recent Vital Signs: Last Vital Signs Temp 99.2 F 04/23/18 15:08 Pulse 100 H 04/23/18 15:08 Resp 18 04/23/18 15:48 BP 121/75 04/23/18 15:48 Pulse Ox 99 04/23/18 15:48 - Labs Result Diagrams: 04/23/18 12:00 04/23/18 12:00 Labs: Laboratory Results - last 24 hr 04/23/18 04/23/18 04/23/18 12:00 12:00 12:00 WBC 9.1 RBC 4.22 L Hgb 12.9 Hct 38.1 MCV 90.3 MCH 30.6 MCHC 33.9 RDW 13.6 Plt Count 249 MPV 8.7 Neut % (Auto) 72.9 Lymph % (Auto) 14.2 L [place] % (Auto) 11.6 H Eos % (Auto) 0.7 Baso % (Auto) 0.6 Neut # (Auto) 6.7 Lymph # (Auto) 1.3 [place] # (Auto) 1.1 H Eos # (Auto) 0.1 Baso # (Auto) 0.1 PT 20.5 H INR 1.8 APTT 44.7 H D-Dimer, Quantitative Sodium 131 L Potassium 5.0 Chloride 96 L Carbon Dioxide 25 Anion Gap 15 BUN 21 H Creatinine 0.8 Est GFR ( Amer) > 60 Est GFR (Non-Af Amer) > 60 Random Glucose 99 Calcium 8.9 Total Bilirubin 0.6 AST 41 ALT 35 Alkaline Phosphatase 62 Troponin I 0.0220 Total Protein 7.2 Albumin 3.8 Globulin 3.4 Albumin/Globulin Ratio 1.1 04/23/18 12:57 WBC RBC Hgb Hct MCV MCH MCHC RDW Plt Count MPV Neut % (Auto) Lymph % (Auto) [place] % (Auto) Eos % (Auto) Baso % (Auto) Neut # (Auto) Lymph # (Auto) [place] # (Auto) Eos # (Auto) Baso # (Auto) PT INR APTT D-Dimer, Quantitative 283 H Sodium Potassium Chloride Carbon Dioxide Anion Gap BUN Creatinine Est GFR ( Amer) Est GFR (Non-Af Amer) Random Glucose Calcium Total Bilirubin AST ALT Alkaline Phosphatase Troponin I Total Protein Albumin Globulin Albumin/Globulin Ratio - EKG Data EKG Interpreted by: Myself Assessment & Plan (1) Paroxysmal atrial fibrillation Assessment and Plan: currently in sinus rhythm. recommend Xarelto. patient will be complaint. I discussed management of afib,including antiarrhythmic theapy. will discharge patient today, and he will come to office for outpatient holter monitor. I will assess afib burden and decide on further management. Status: Acute
[2018-04-23 19:49] VITALS: BP 107/59; PULSE 63; O2SAT 98
--- NOTE | 2018-04-24 08:29 | CP.PCM.HP ---
History of Present Illness - History of Present Illness History of Present Illness: pt was admitted for afib w/ rvr and palpitations. pt had converted to nsr and seen by Dr. Francisco-Cardio. pt was cleared by cardio and dc prior to eval by this provider all bw nad imaging reviewed. Present on Admission - Present on Admission Any Indicators Present on Admission: No Review of Systems - Cardiovascular Cardiovascular: As Per HPI, Palpitations Past Patient History - Past Medical History & Family History Past Medical History?: Yes - Past Social History Alcohol: None - CARDIAC Hx Atrial Fibrillation: Yes Hx Hypercholesterolemia: Yes - PULMONARY Hx Respiratory Disorders: No - NEUROLOGICAL Hx Neurological Disorder: No - HEENT Hx HEENT Problems: No - RENAL Hx Chronic Kidney Disease: No - ENDOCRINE/METABOLIC Hx Endocrine Disorders: No - HEMATOLOGICAL/ONCOLOGICAL Hx Human Immunodeficiency Virus (HIV): No - INTEGUMENTARY Hx Dermatological Problems: No - MUSCULOSKELETAL/RHEUMATOLOGICAL Hx Musculoskeletal Disorders: Yes Hx Falls: No - GASTROINTESTINAL Hx Gastrointestinal Disorders: No - GENITOURINARY/GYNECOLOGICAL Hx Genitourinary Disorders: No - PSYCHIATRIC Hx Psychophysiologic Disorder: No Hx Substance Use: No - SURGICAL HISTORY Hx Surgeries: Yes Hx Orthopedic Surgery: Yes Other/Comment: Bilateral Achilles tendon repair; Right medial meniscal tear repair. - ANESTHESIA Hx Anesthesia: Yes Hx Anesthesia Reactions: No Hx Malignant Hyperthermia: No Meds Allergies/Adverse Reactions: Allergies Allergy/AdvReac Type Severity Reaction Status Date / Time Sulfa (Sulfonamide Allergy RASH Verified 01/23/18 08:47 Antibiotics) Results - Vital Signs Recent Vital Signs: Last Vital Signs Temp 99.2 F 04/23/18 15:08 Pulse 63 04/23/18 19:05 Resp 18 04/23/18 19:05 BP 107/59 L 04/23/18 19:05 Pulse Ox 98 04/23/18 19:05 - Labs Result Diagrams: 04/23/18 12:00 04/23/18 12:00 Labs: Laboratory Results - last 24 hr 04/23/18 04/23/18 04/23/18 12:00 12:00 12:00 WBC 9.1 RBC 4.22 L Hgb 12.9 Hct 38.1 MCV 90.3 MCH 30.6 MCHC 33.9 RDW 13.6 Plt Count 249 MPV 8.7 Neut % (Auto) 72.9 Lymph % (Auto) 14.2 L [place] % (Auto) 11.6 H Eos % (Auto) 0.7 Baso % (Auto) 0.6 Neut # (Auto) 6.7 Lymph # (Auto) 1.3 [place] # (Auto) 1.1 H Eos # (Auto) 0.1 Baso # (Auto) 0.1 PT 20.5 H INR 1.8 APTT 44.7 H D-Dimer, Quantitative Sodium 131 L Potassium 5.0 Chloride 96 L Carbon Dioxide 25 Anion Gap 15 BUN 21 H Creatinine 0.8 Est GFR ( Amer) > 60 Est GFR (Non-Af Amer) > 60 Random Glucose 99 Calcium 8.9 Total Bilirubin 0.6 AST 41 ALT 35 Alkaline Phosphatase 62 Troponin I 0.0220 Total Protein 7.2 Albumin 3.8 Globulin 3.4 Albumin/Globulin Ratio 1.1 04/23/18 12:57 WBC RBC Hgb Hct MCV MCH MCHC RDW Plt Count MPV Neut % (Auto) Lymph % (Auto) [place] % (Auto) Eos % (Auto) Baso % (Auto) Neut # (Auto) Lymph # (Auto) [place] # (Auto) Eos # (Auto) Baso # (Auto) PT INR APTT D-Dimer, Quantitative 283 H Sodium Potassium Chloride Carbon Dioxide Anion Gap BUN Creatinine Est GFR ( Amer) Est GFR (Non-Af Amer) Random Glucose Calcium Total Bilirubin AST ALT Alkaline Phosphatase Troponin I Total Protein Albumin Globulin Albumin/Globulin Ratio Assessment & Plan (1) Atrial fibrillation with RVR Assessment and Plan: cardizem, digoxin cardio cleared nad dc by cardio Status: Acute Decision To Admit - Pt Status Changed To: Hospital Disposition Of: Observation - . Bed Request Type: Telemetry Admitting Physician: Christofer Matta
--- NOTE | 2018-04-24 08:30 | CP.PCM.DIS ---
Provider - Provider Date of Admission: 04/23/18 15:26 Attending physician: Christofer Matta MD Consults: 04/23/18 15:39 Cardiology Consult Stat Comment: Consulting Provider: Carline Francisco Consulting Physician: Carline Francisco Reason for Consult: afib Time Spent in preparation of Discharge (in minutes): 15 Diagnosis - Discharge Diagnosis (1) Atrial fibrillation with RVR Status: Acute Hospital Course - Lab Results Lab Results: Most Recent Lab Values WBC 9.1 K/uL (4.8-10.8) 04/23/18 12:00 RBC 4.22 Mil/uL (4.40-5.90) L 04/23/18 12:00 Hgb 12.9 g/dL (12.0-18.0) 04/23/18 12:00 Hct 38.1 % (35.0-51.0) 04/23/18 12:00 MCV 90.3 fl (80.0-94.0) 04/23/18 12:00 MCH 30.6 pg (27.0-31.0) 04/23/18 12:00 MCHC 33.9 g/dL (33.0-37.0) 04/23/18 12:00 RDW 13.6 % (11.5-14.5) 04/23/18 12:00 Plt Count 249 K/uL (130-400) 04/23/18 12:00 MPV 8.7 fl (7.2-11.7) 04/23/18 12:00 Neut % (Auto) 72.9 % (50.0-75.0) 04/23/18 12:00 Lymph % (Auto) 14.2 % (20.0-40.0) L 04/23/18 12:00 [place] % (Auto) 11.6 % (0.0-10.0) H 04/23/18 12:00 Eos % (Auto) 0.7 % (0.0-4.0) 04/23/18 12:00 Baso % (Auto) 0.6 % (0.0-2.0) 04/23/18 12:00 Neut # (Auto) 6.7 K/uL (1.8-7.0) 04/23/18 12:00 Lymph # (Auto) 1.3 K/uL (1.0-4.3) 04/23/18 12:00 [place] # (Auto) 1.1 K/uL (0.0-0.8) H 04/23/18 12:00 Eos # (Auto) 0.1 K/uL (0.0-0.7) 04/23/18 12:00 Baso # (Auto) 0.1 K/uL (0.0-0.2) 04/23/18 12:00 PT 20.5 Seconds (9.8-13.1) H 04/23/18 12:00 INR 1.8 04/23/18 12:00 APTT 44.7 Seconds (25.6-37.1) H 04/23/18 12:00 D-Dimer, Quantitative 283 ng/mlDDU (0-230) H 04/23/18 12:57 Sodium 131 mmol/l (132-148) L 04/23/18 12:00 Potassium 5.0 MMOL/L (3.6-5.0) 04/23/18 12:00 Chloride 96 mmol/L (98-107) L 04/23/18 12:00 Carbon Dioxide 25 mmol/L (22-30) 04/23/18 12:00 Anion Gap 15 (10-20) 04/23/18 12:00 BUN 21 mg/dl (9-20) H 04/23/18 12:00 Creatinine 0.8 mg/dl (0.8-1.5) 04/23/18 12:00 Est GFR ( Amer) > 60 04/23/18 12:00 Est GFR (Non-Af Amer) > 60 04/23/18 12:00 Random Glucose 99 mg/dL (75-110) 04/23/18 12:00 Calcium 8.9 mg/dL (8.4-10.2) 04/23/18 12:00 Total Bilirubin 0.6 mg/dl (0.2-1.3) 04/23/18 12:00 AST 41 U/L (17-59) 04/23/18 12:00 ALT 35 U/L (21-72) 04/23/18 12:00 Alkaline Phosphatase 62 U/L (38-126) 04/23/18 12:00 Troponin I 0.0220 ng/mL (0.00-0.120) 04/23/18 12:00 Total Protein 7.2 G/DL (6.3-8.2) 04/23/18 12:00 Albumin 3.8 g/dL (3.5-5.0) 04/23/18 12:00 Globulin 3.4 gm/dL (2.2-3.9) 04/23/18 12:00 Albumin/Globulin Ratio 1.1 (1.0-2.1) 04/23/18 12:00 - Hospital Course Hospital Course: cardizem, digoxin cardio Discharge Exam - Head Exam Head Exam: NORMAL INSPECTION Discharge Plan - Follow Up Plan Condition: STABLE Disposition: HOME/ ROUTINE Additional Instructions: final dx-afib w/ rvr cleared by cardio and dc f/u cardio-halter monitor f/u rmg. rted prn
[2018-04-24] MEDS ORDERED: SAW PALMETTO FRUIT PO SCH (09:00)
[2018-04-24] MEDS ORDERED: Cholecalciferol 1,000 INTLU TAB PO SCH (09:00)
[2018-04-24] MEDS ORDERED: Multivitamin With Minerals Tab PO SCH (09:00)
== END 2018-04-23 19:49 | disposition home or self-care (01) ==
LOC: H.ER 10:33 → H.ERHOLD 15:26 → UNDOADMIN 15:26 → UNDODISIN 19:49
DX: I48.91 Unspecified atrial fibrillation (principal)
CPT/HCPCS: 71045; 71275; 80053; 84484; 85025; 85378; 85610; 85730; 93005; 96374; 96375; 96376; 99284; J1160; Q9967

== ENCOUNTER 2018-04-28 09:20 | Inpatient (IN) | payer OTHER, MEDICARE ==
[2018-04-28 09:22] VITALS: BMI 26.4
--- NOTE | 2018-04-28 10:09 | ED PDOC ---
HPI: Hypertension/Hypotension Time Seen by Provider: 04/28/18 09:32 Chief Complaint (Nursing): Palpitations Chief Complaint (Provider): Palpitations History Per: Patient History/Exam Limitations: no limitations Additional Complaint(s): Pt reports palpitations that started @ 6 AM today. Also c/o midsternal chest tightness last PM that has since resolved. Pt was evaluated in ED on 04/23/18 for same symptoms. Past Medical History Reviewed: Nursing Documentation, Vital Signs Vital Signs: Last Vital Signs Temp 97.8 F 04/28/18 09:25 Pulse 73 04/28/18 09:25 Resp 19 04/28/18 09:25 BP 120/80 04/28/18 10:00 Pulse Ox 100 04/28/18 10:01 - Medical History PMH: Atrial Fibrillation, Hypercholesterolemia Denies: HIV, Chronic Kidney Disease - Family History Family History: States: Unknown Family Hx - Living Arrangements Living Arrangements: With Family - Social History Current smoker - smoking cessation education provided: No Alcohol: None - Immunization History Hx Tetanus Toxoid Vaccination: Yes Hx Influenza Vaccination: No Hx Pneumococcal Vaccination: No - Home Medications Home Medications: Ambulatory Orders Medication Instructions Recorded Azithromycin [Zithromax] 250 mg PO ASDIR 04/23/18 Cholecalciferol [Vitamin D 1000 IU] 1 tab PO DAILY 04/23/18 Fluticasone Nasal [Flonase] 1 spray RAMSEY Q12 PRN 04/23/18 Multivitamin [Multi-Vitamin Daily] 1 tab PO DAILY 04/23/18 Rivaroxaban [Xarelto] 20 mg PO QPM 04/23/18 Saw [place] Fruit [Saw [place]] 1 cap PO DAILY 04/23/18 - Allergies Allergies/Adverse Reactions: Allergies Allergy/AdvReac Type Severity Reaction Status Date / Time Sulfa (Sulfonamide Allergy RASH Verified 01/23/18 08:47 Antibiotics) Review of Systems Constitutional: Negative for: Fever, Chills Cardiovascular: Positive for: Palpitations. Negative for: Chest Pain Respiratory: Negative for: Cough, Shortness of Breath Gastrointestinal: Negative for: Abdominal Pain Neurological: Negative for: Headache Physical Exam - Reviewed Nursing Documentation Reviewed: Yes Vital Signs Reviewed: Yes - Physical Exam Appears: Positive for: Well, No Acute Distress Head Exam: Positive for: ATRAUMATIC, NORMAL INSPECTION Skin: Positive for: Normal Color, Warm, Dry Eye Exam: Positive for: Normal appearance, EOMI, PERRL Cardiovascular/Chest: Positive for: Tachycardia, Irregularly Irregular Respiratory: Positive for: Normal Breath Sounds. Negative for: Rales, Rhonchi, Wheezing Gastrointestinal/Abdominal: Positive for: Normal Exam Back: Positive for: Normal Inspection Extremity: Positive for: Normal ROM Neurologic/Psych: Positive for: Alert, Oriented - Laboratory Results Result Diagrams: 04/28/18 10:25 04/28/18 10:25 - ECG O2 Sat by Pulse Oximetry: 100 Medical Decision Making Medical Decision Makin yo male with recurrent a fib with RVR. - labs - EKG - CXR - Cardizem 1022 CXR FINDINGS: LUNGS: No active pulmonary disease. PLEURA: No significant pleural effusion identified, no pneumothorax apparent. CARDIOVASCULAR: No aortic atherosclerotic calcification present. Normal cardiac size. No pulmonary vascular congestion. OSSEOUS STRUCTURES: No significant abnormalities. VISUALIZED UPPER ABDOMEN: Normal. OTHER FINDINGS: None. IMPRESSION: No interval acute cardiopulmonary disease appreciated. 14:[address] Francisco, admit. Disposition - Clinical Impression Clinical Impression: Atrial fibrillation with RVR - Patient ED Disposition Is Patient to be Admitted: Yes - Disposition Disposition Time: 14:30 Condition: STABLE Forms: [employer] (Ecuadorean) - Pt Status Changed To: Hospital Disposition Of: Inpatient - Admit Certification Admit to Inpatient:: After my assessment, the patient will require hospitalization for at least two midnights. This is because of the severity of symptoms shown, intensity of services needed, and/or the medical risk in this patient being treated as an outpatient. - POA Present On Arrival: None
--- NOTE | 2018-04-28 10:26 | RAD ---
Date of service: 04/28/2018 HISTORY: A fib with RVR COMPARISON: Frontal chest radiograph 04/23/2018. FINDINGS: LUNGS: No active pulmonary disease. PLEURA: No significant pleural effusion identified, no pneumothorax apparent. CARDIOVASCULAR: No aortic atherosclerotic calcification present. Normal cardiac size. No pulmonary vascular congestion. OSSEOUS STRUCTURES: No significant abnormalities. VISUALIZED UPPER ABDOMEN: Normal. OTHER FINDINGS: None. IMPRESSION: No interval acute cardiopulmonary disease appreciated.
[2018-04-28 10:33] LABS: BASO # 0.1 K/uL (0.0-0.2); EOS % 0.5 % (0.0-4.0); LYMPH # 1.3 K/uL (1.0-4.3); LYMPH % 14.1 % (20.0-40.0); MEAN CELL VOLUME 89.9 fl (80.0-94.0); MEAN CORPUSCULAR HEMOGLOBIN 30.5 pg (27.0-31.0); MEAN CORPUSCULAR HGB CONC 33.9 g/dL (33.0-37.0); MEAN PLATELET VOLUME 7.7 fl (7.2-11.7); MONO # 0.8 K/uL (0.0-0.8); MONO % 8.3 % (0.0-10.0); NEUT # 6.9 K/uL (1.8-7.0); NEUT % 76.1 % (50.0-75.0); RBC 4.59 Mil/uL (4.40-5.90); RED CELL DISTRIBUTION WIDTH 13.4 % (11.5-14.5); WHITE BLOOD COUNT 9.1 K/uL (4.8-10.8)
[2018-04-28 10:38] LABS: INR 1.4; PROTHROMBIN TIME 16.3 Seconds (9.8-13.1)
[2018-04-28] MEDS ORDERED: Sodium Chloride 0.9% 1,000 ML IV STA (10:40)
[2018-04-28 10:41] LABS: PARTIAL THROMBOPLASTIN TIME 41.9 Seconds (25.6-37.1)
[2018-04-28 10:42] LABS: ALB/GLOB RATIO 1.1 (1.0-2.1); ALBUMIN 3.9 g/dL (3.5-5.0); ALT/SGPT 25 U/L (21-72); AST/SGOT 21 U/L (17-59); BLOOD UREA NITROGEN 17 mg/dl (9-20); CALCIUM 9.4 mg/dL (8.4-10.2); GFR NON-AFRICAN AMERICAN > 60
[2018-04-28] MEDS ORDERED: Digoxin 500 mcg/2ml (0.5 mg/2ml) Inj IVP STA (11:41)
[2018-04-28] MEDS ORDERED: Digoxin 500 mcg/2ml (0.5 mg/2ml) Inj ONE ×2 (12:24→12:31)
[2018-04-28 12:35] VITALS: PULSE 135
--- NOTE | 2018-04-28 21:08 | CARD ---
APPROVED REPORT Date of service: 04/28/2018 EKG Measurement Heart [id number] <Conclusion> Atrial fibrillation with rapid ventricular response Nonspecific T wave abnormality Abnormal ECG
[2018-04-29 08:34] LABS: ALB/GLOB RATIO 1.1 (1.0-2.1); ALBUMIN 3.7 g/dL (3.5-5.0); ALT/SGPT 34 U/L (21-72); AST/SGOT 22 U/L (17-59); BLOOD UREA NITROGEN 17 mg/dl (9-20); CALCIUM 8.9 mg/dL (8.4-10.2); GFR NON-AFRICAN AMERICAN > 60
[2018-04-29] MEDS: Multivitamin With Minerals Tab PO SCH (08:36)
[2018-04-29] MEDS: Cholecalciferol 1,000 INTLU TAB PO SCH (08:36)
[2018-04-29 08:41] LABS: BASO # 0.1 K/uL (0.0-0.2); BASO % 1.1 % (0.0-2.0); EOS # 0.1 K/uL (0.0-0.7); EOS % 1.3 % (0.0-4.0); LYMPH # 1.7 K/uL (1.0-4.3); LYMPH % 22.7 % (20.0-40.0); MEAN CELL VOLUME 89.7 fl (80.0-94.0); MEAN CORPUSCULAR HEMOGLOBIN 30.4 pg (27.0-31.0); MEAN CORPUSCULAR HGB CONC 33.9 g/dL (33.0-37.0); MEAN PLATELET VOLUME 8.2 fl (7.2-11.7); MONO # 0.8 K/uL (0.0-0.8); MONO % 10.9 % (0.0-10.0); NEUT # 4.8 K/uL (1.8-7.0); NRBC % 0.1 % (0.0-0.0); RBC 4.28 Mil/uL (4.40-5.90); RED CELL DISTRIBUTION WIDTH 13.5 % (11.5-14.5); WHITE BLOOD COUNT 7.4 K/uL (4.8-10.8)
[2018-04-29] MEDS ORDERED: SAW PALMETTO FRUIT PO SCH (09:00)
--- NOTE | 2018-04-29 18:01 | CARD ---
APPROVED REPORT Date of service: 04/28/2018 EKG Measurement Heart [id number] <Conclusion> Atrial fibrillation with rapid ventricular response Nonspecific T wave abnormality Abnormal ECG
--- NOTE | 2018-04-29 19:07 | CP.PCM.HP ---
History of Present Illness - History of Present Illness History of Present Illness: pt admitted for recurrent afib at present in nsr no distress no fcnvd bw noted Past Patient History - Past Medical History & Family History Past Medical History?: Yes - Past Social History Smoking Status: Never Smoked - CARDIAC Hx Cardiac Disorders: Yes Hx Atrial Fibrillation: Yes - PULMONARY Hx Respiratory Disorders: No - NEUROLOGICAL Hx Neurological Disorder: No - HEENT Hx HEENT Problems: No - RENAL Hx Chronic Kidney Disease: No - ENDOCRINE/METABOLIC Hx Endocrine Disorders: No - HEMATOLOGICAL/ONCOLOGICAL Hx Blood Disorders: Yes Hx Human Immunodeficiency Virus (HIV): No Other/Comment: Raynauds disease - INTEGUMENTARY Hx Dermatological Problems: No - MUSCULOSKELETAL/RHEUMATOLOGICAL Hx Musculoskeletal Disorders: No Hx Falls: No - GASTROINTESTINAL Hx Gastrointestinal Disorders: No - GENITOURINARY/GYNECOLOGICAL Hx Genitourinary Disorders: No - PSYCHIATRIC Hx Psychophysiologic Disorder: No Hx Substance Use: No - SURGICAL HISTORY Hx Surgeries: Yes Hx Orthopedic Surgery: Yes Other/Comment: Bilateral Achilles tendon repair; Right medial meniscal tear repair. - ANESTHESIA Hx Anesthesia: Yes Hx Anesthesia Reactions: No Hx Malignant Hyperthermia: No Has any member of the family had a problem w/ anesthesia?: No Meds Allergies/Adverse Reactions: Allergies Allergy/AdvReac Type Severity Reaction Status Date / Time Sulfa (Sulfonamide Allergy RASH Verified 01/23/18 08:47 Antibiotics) Results - Vital Signs Recent Vital Signs: Last Vital Signs Temp 98.3 F 04/29/18 16:06 Pulse 60 04/29/18 18:50 Resp 20 04/29/18 16:06 BP 132/71 04/29/18 18:50 Pulse Ox 97 04/29/18 16:06 - Labs Result Diagrams: 04/29/18 06:15 04/29/18 06:15 Labs: Laboratory Results - last 24 hr 04/29/18 04/29/18 06:15 06:15 WBC 7.4 RBC 4.28 L Hgb 13.0 Hct 38.4 MCV 89.7 MCH 30.4 MCHC 33.9 RDW 13.5 Plt Count 307 MPV 8.2 Neut % (Auto) 64.0 Lymph % (Auto) 22.7 [place] % (Auto) 10.9 H Eos % (Auto) 1.3 Baso % (Auto) 1.1 Neut # (Auto) 4.8 Lymph # (Auto) 1.7 [place] # (Auto) 0.8 Eos # (Auto) 0.1 Baso # (Auto) 0.1 Sodium 134 Potassium 4.7 Chloride 97 L Carbon Dioxide 26 Anion Gap 16 BUN 17 Creatinine 1.0 Est GFR ( Amer) > 60 Est GFR (Non-Af Amer) > 60 Random Glucose 98 Calcium 8.9 Total Bilirubin 0.4 AST 22 ALT 34 Alkaline Phosphatase 61 Total Protein 6.9 Albumin 3.7 Globulin 3.3 Albumin/Globulin Ratio 1.1
--- NOTE | 2018-04-30 07:17 | CP.PCM.CON ---
History of Present Illness - History of Present Illness History of Present Illness: I was asked to see patient by Dr Matta. Patient seen 04/30/18 0700 Patient is a 68 year old male with paroxysmal atrial fibrillation who presents with palpitations. He awoke with heart racing and dyspnea. He was found to be in atrial fibrillation with RVR. This is his second episode of afib with RVR in one week. He converted to sinus rhythm in he ER. He was started on amiodarone last night. Review of Systems - Constitutional Constitutional: absent: As Per HPI, Anorexia, Chills, Daytime Sleepiness, Excessive Sweating, Fatigue, Fever, Frequent Falls, Headache, Increased Appetite, Lethargy, Malaise, Night Sweats, Snoring, Sleep Apnea, Weight Gain, Weight Loss, Weakness, Other - EENT Eyes: absent: As Per HPI, Blind Spots, Blurred Vision, Change in Vision, Decreased Night Vision, Diplopia, Discharge, Dry Eye, Exophthalmos, Floaters, Irritation, Itchy Eyes, Loss of Peripheral Vision, Pain, Photophobia, Requires Corrective Lenses, Sees Flashes, Spots in Vision, Tunnel Vision, Other Visual Disturbances, Loss of Vision, Other Ears: absent: As Per HPI, Decreased Hearing, Ear Discharge, Ear Pain, Tinnitus, Abnormal Hearing, Disequilibrium, Dizziness, Other Nose/Mouth/Throat: absent: As Per HPI, Epistaxis, Nasal Congestion, Nasal Discharge, Nasal Obstruction, Nasal Trauma, Nose Pain, Post Nasal Drip, Sinus Pain, Sinus Pressure, Bleeding Gums, Change in Voice, Dental Pain, Dry Mouth, Dysphagia, Halitosis, Hoarsness, Lip Swelling, Mouth Lesions, Mouth Pain, Odyno phagia, Sore Throat, Throat Swelling, Tongue Swelling, Facial Pain, Neck Pain, Neck Mass, Other - Cardiovascular Cardiovascular: Dyspnea, Palpitations - Respiratory Respiratory: Dyspnea - Gastrointestinal Gastrointestinal: absent: As Per HPI, Abdominal Pain, Belching, Bloating, Change in Bowel Habits, Change in Stool Character, Coffee Ground Emesis, Constipation, Cramping, Diarrhea, Dyspepsia, Dysphagia, Early Satiety, Excessive Flatus, Fecal Incontinence, Heartburn, Hematemesis, Hematochezia, Loose Stools, Melena, Nausea, Odynophagia, Temesmus, Vomiting, Other - Genitourinary Genitourinary: absent: As Per HPI, Change in Urinary Stream, Difficulty Urinating, Dysuria, Flank Pain, Hematuria, Pyuria, Nocturia, Urinary Incontinence, Urinary Frequency, Urinary Hesitance, Urinary Urgency, Voiding Freq/Small Amts, Freq UTI, Hx Renal/Bladder Calculi, Hx /Renal Surgery, Bladder Distension, Other - Musculoskeletal Musculoskeletal: absent: As Per HPI, Abnormal Gait, Arthralgias, Atrophy, Back Pain, Deformity, Joint Swelling, Limited Range of Motion, Loss of Height, Muscle Cramps, Muscle Weakness, Myalgias, Neck Pain, Numbness, Radiating Pain into Limb, Stiffness, Tingling, Other - Integumentary Integumentary: absent: As Per HPI, Acne, Alopecia, Bleeding Lesions, Change in Hair, Change in Nails, Change in Pigmentation, Changing Lesions, Dry Skin, Erythema, Furuncle, Hirsutism, Lesions, New Lesions, Non-Healing Lesions, Photosensitivity, Pruritus, Rash, Skin Pain, Skin Ulcer, Sores, Striae, Swelling, Unusual Bruising, Wounds, Jaundice, Other - Neurological Neurological: absent: As Per HPI, Abnormal Gait, Abnormal Hearing, Abnormal Movements, Abnormal Speech, Behavioral Changes, Burning Sensations, Confusion, Convulsions, Disequilibrium, Dizziness, Numbness, Focal Weakness, Frequent Falls, Headaches, Lack of Coordination, Loss of Vision, Memory Loss, Paresthesias, Radicular Pain, Restless Legs, Sensory Deficit, Syncope, Tingling, Tremor, Vertigo, Weakness, Other Visual Disturbances, Other - Psychiatric Psychiatric: absent: As Per HPI, Abnormal Sleep Pattern, Anhedonia, Anxiety, Auditory Hallucinations, Behavioral Changes, Change in Appetite, Change in Libido, Confusion, Depression, Difficulty Concentrating, Hallucinations, Homicidal Ideation, Hopelessness, Irritability, Memory Loss, Mood Swings, Panic Attacks, Paranoia, Suicidal Ideation, Visual Hallucinations, Tactile Hallucinations, Other - Endocrine Endocrine: absent: As Per HPI, Change in Body Appearance, Change in Libido, Cold Intolorance, Deepening of Voice, Excessive Sweating, Fatigue, Flushing, Heat Intolorance, Increase in Ring/Shoe/Hat Size, Palpitations, Polydipsia, Polyphagia, Polyuria, Other - Hematologic/Lymphatic Hematologic: absent: As Per HPI, Easy Bleeding, Easy Bruising, Lymphadenopathy, Other Past Patient History - Past Medical History & Family History Past Medical History?: Yes - Past Social History Smoking Status: Never Smoked - CARDIAC Hx Cardiac Disorders: Yes Hx Atrial Fibrillation: Yes - PULMONARY Hx Respiratory Disorders: No - NEUROLOGICAL Hx Neurological Disorder: No - HEENT Hx HEENT Problems: No - RENAL Hx Chronic Kidney Disease: No - ENDOCRINE/METABOLIC Hx Endocrine Disorders: No - HEMATOLOGICAL/ONCOLOGICAL Hx Blood Disorders: Yes Hx Human Immunodeficiency Virus (HIV): No Other/Comment: Raynauds disease - INTEGUMENTARY Hx Dermatological Problems: No - MUSCULOSKELETAL/RHEUMATOLOGICAL Hx Musculoskeletal Disorders: No Hx Falls: No - GASTROINTESTINAL Hx Gastrointestinal Disorders: No - GENITOURINARY/GYNECOLOGICAL Hx Genitourinary Disorders: No - PSYCHIATRIC Hx Psychophysiologic Disorder: No Hx Substance Use: No - SURGICAL HISTORY Hx Surgeries: Yes Hx Orthopedic Surgery: Yes Other/Comment: Bilateral Achilles tendon repair; Right medial meniscal tear repair. - ANESTHESIA Hx Anesthesia: Yes Hx Anesthesia Reactions: No Hx Malignant Hyperthermia: No Has any member of the family had a problem w/ anesthesia?: No Meds Allergies/Adverse Reactions: Allergies Allergy/AdvReac Type Severity Reaction Status Date / Time Sulfa (Sulfonamide Allergy RASH Verified 01/23/18 08:47 Antibiotics) - Medications Medications: Current Medications Amiodarone HCl (Cordarone) 200 mg PO DAILY [facility] Last Admin: 04/29/18 18:50 Dose: 200 mg Cholecalciferol (Vitamin D) 1,000 intlu PO DAILY [facility] Last Admin: 04/29/18 08:36 Dose: 1,000 intlu Multivitamins/Minerals (Therapeutic-M Tab) 1 tab PO DAILY [facility] Last Admin: 04/29/18 08:36 Dose: 1 tab Rivaroxaban (Xarelto) 20 mg PO QPM [facility]; Protocol Last Admin: 04/29/18 18:49 Dose: 20 mg Physical Exam - Constitutional Appears: Non-toxic - Head Exam Head Exam: NORMAL INSPECTION - Eye Exam Eye Exam: Normal appearance - ENT Exam ENT Exam: Mucous Membranes Moist - Neck Exam Neck exam: Positive for: Full Rom, Normal Inspection - Respiratory Exam Respiratory Exam: NORMAL BREATHING PATTERN - Cardiovascular Exam Cardiovascular Exam: REGULAR RHYTHM - GI/Abdominal Exam GI & Abdominal Exam: Normal Bowel Sounds, Soft. absent: Organomegaly, Pulsatile Mass, Rebound, Rigid - Rectal Exam Rectal Exam: Deferred - Extremities Exam Extremities exam: Negative for: pedal edema - Back Exam Back exam: NORMAL INSPECTION - Neurological Exam Neurological exam: Alert, Oriented x3 - Psychiatric Exam Psychiatric exam: Normal Affect - Skin Skin Exam: Normal Color Results - Vital Signs Recent Vital Signs: Last Vital Signs Temp 98.4 F 04/30/18 05:17 Pulse 59 L 04/30/18 05:17 Resp 19 04/30/18 05:17 BP 123/68 04/30/18 05:17 Pulse Ox 96 04/30/18 05:17 - Labs Result Diagrams: 04/29/18 06:15 04/29/18 06:15 Labs: Laboratory Results - last 24 hr 04/29/18 04/29/18 06:15 06:15 WBC 7.4 RBC 4.28 L Hgb 13.0 Hct 38.4 MCV 89.7 MCH 30.4 MCHC 33.9 RDW 13.5 Plt Count 307 MPV 8.2 Neut % (Auto) 64.0 Lymph % (Auto) 22.7 [place] % (Auto) 10.9 H Eos % (Auto) 1.3 Baso % (Auto) 1.1 Neut # (Auto) 4.8 Lymph # (Auto) 1.7 [place] # (Auto) 0.8 Eos # (Auto) 0.1 Baso # (Auto) 0.1 Sodium 134 Potassium 4.7 Chloride 97 L Carbon Dioxide 26 Anion Gap 16 BUN 17 Creatinine 1.0 Est GFR ( Amer) > 60 Est GFR (Non-Af Amer) > 60 Random Glucose 98 Calcium 8.9 Total Bilirubin 0.4 AST 22 ALT 34 Alkaline Phosphatase 61 Total Protein 6.9 Albumin 3.7 Globulin 3.3 Albumin/Globulin Ratio 1.1 - EKG Data EKG Interpreted by: Myself EKG shows normal: Sinus rhythm Assessment & Plan (1) Paroxysmal atrial fibrillation Assessment and Plan: given repeated eipsode of afib, will start antiarrhythmic therapy. will add amiodarone 200mg daily. continue Xarelto. patient can be discharged today. If recurrent atrial fibrillation on antiarrhythmic therapy, will consider ablation. Status: Acute
[2018-04-30 07:45] VITALS: BP 128/78; PULSE 55; RESP 20; TEMP 98.1; O2SAT 98
[2018-04-30] MEDS: Multivitamin With Minerals Tab PO SCH (08:09)
[2018-04-30] MEDS: Cholecalciferol 1,000 INTLU TAB PO SCH (08:09)
--- NOTE | 2018-04-30 08:41 | CP.PCM.DIS ---
Provider - Provider Date of Admission: 04/28/18 14:28 Attending physician: Christofer Matta MD Consults: 04/28/18 18:18 Cardiology Consult Stat Comment: Consulting Provider: Carline Francisco Consulting Physician: Carline Francisco Reason for Consult: afib Time Spent in preparation of Discharge (in minutes): 15 Hospital Course - Lab Results Lab Results: Most Recent Lab Values WBC 7.4 K/uL (4.8-10.8) 04/29/18 06:15 RBC 4.28 Mil/uL (4.40-5.90) L 04/29/18 06:15 Hgb 13.0 g/dL (12.0-18.0) 04/29/18 06:15 Hct 38.4 % (35.0-51.0) 04/29/18 06:15 MCV 89.7 fl (80.0-94.0) 04/29/18 06:15 MCH 30.4 pg (27.0-31.0) 04/29/18 06:15 MCHC 33.9 g/dL (33.0-37.0) 04/29/18 06:15 RDW 13.5 % (11.5-14.5) 04/29/18 06:15 Plt Count 307 K/uL (130-400) 04/29/18 06:15 MPV 8.2 fl (7.2-11.7) 04/29/18 06:15 Neut % (Auto) 64.0 % (50.0-75.0) 04/29/18 06:15 Lymph % (Auto) 22.7 % (20.0-40.0) 04/29/18 06:15 [place] % (Auto) 10.9 % (0.0-10.0) H 04/29/18 06:15 Eos % (Auto) 1.3 % (0.0-4.0) 04/29/18 06:15 Baso % (Auto) 1.1 % (0.0-2.0) 04/29/18 06:15 Neut # (Auto) 4.8 K/uL (1.8-7.0) 04/29/18 06:15 Lymph # (Auto) 1.7 K/uL (1.0-4.3) 04/29/18 06:15 [place] # (Auto) 0.8 K/uL (0.0-0.8) 04/29/18 06:15 Eos # (Auto) 0.1 K/uL (0.0-0.7) 04/29/18 06:15 Baso # (Auto) 0.1 K/uL (0.0-0.2) 04/29/18 06:15 PT 16.3 Seconds (9.8-13.1) H 04/28/18 10:25 INR 1.4 04/28/18 10:25 APTT 41.9 Seconds (25.6-37.1) H 04/28/18 10:25 Sodium 134 mmol/l (132-148) 04/29/18 06:15 Potassium 4.7 MMOL/L (3.6-5.0) 04/29/18 06:15 Chloride 97 mmol/L (98-107) L 04/29/18 06:15 Carbon Dioxide 26 mmol/L (22-30) 04/29/18 06:15 Anion Gap 16 (10-20) 04/29/18 06:15 BUN 17 mg/dl (9-20) 04/29/18 06:15 Creatinine 1.0 mg/dl (0.8-1.5) 04/29/18 06:15 Est GFR ( Amer) > 60 04/29/18 06:15 Est GFR (Non-Af Amer) > 60 04/29/18 06:15 POC Glucose (mg/dL) 116 mg/dL (65-110) H 04/28/18 09:41 Random Glucose 98 mg/dL (75-110) 04/29/18 06:15 Calcium 8.9 mg/dL (8.4-10.2) 04/29/18 06:15 Total Bilirubin 0.4 mg/dl (0.2-1.3) 04/29/18 06:15 AST 22 U/L (17-59) 04/29/18 06:15 ALT 34 U/L (21-72) 04/29/18 06:15 Alkaline Phosphatase 61 U/L (38-126) 04/29/18 06:15 Troponin I < 0.0120 ng/mL (0.00-0.120) 04/28/18 10:25 Total Protein 6.9 G/DL (6.3-8.2) 04/29/18 06:15 Albumin 3.7 g/dL (3.5-5.0) 04/29/18 06:15 Globulin 3.3 gm/dL (2.2-3.9) 04/29/18 06:15 Albumin/Globulin Ratio 1.1 (1.0-2.1) 04/29/18 06:15 - Hospital Course Hospital Course: cardio,amiodarone dig, cardizem gtt Discharge Exam - Head Exam Head Exam: ATRAUMATIC, NORMAL INSPECTION, NORMOCEPHALIC - Eye Exam Eye Exam: EOMI, Normal appearance, PERRL Pupil Exam: NORMAL ACCOMODATION, PERRL - Respiratory Exam Respiratory Exam: Clear to PA & Lateral, NORMAL BREATHING PATTERN, UNREMARKABLE - Cardiovascular Exam Cardiovascular Exam: REGULAR RHYTHM, RRR, +S1, +S2 - GI/Abdominal Exam GI & Abdominal Exam: Normal Bowel Sounds, Soft, Unremarkable - Extremities Exam Extremities exam: full ROM, normal capillary refill, normal inspection, pedal pulses present - Back Exam Back exam: NORMAL INSPECTION - Neurological Exam Neurological exam: Alert, CN II-XII Intact, Normal Gait, Oriented x3, Reflexes Normal - Psychiatric Exam Psychiatric exam: Normal Affect, Normal Mood - Skin Skin Exam: Dry, Intact, Normal Color, Warm Discharge Plan - Discharge Medications Prescriptions: Amiodarone [Cordarone] 200 mg PO DAILY #30 tab - Follow Up Plan Condition: STABLE Disposition: HOME/ ROUTINE Additional Instructions: final dx-afib. doing well, in nsr now. cleared for dc by cardio f/u rmg rted prn, meds per med recmeds e-rx
== END 2018-04-30 09:35 | disposition home or self-care (01) | DRG 310 ==
LOC: H.ER 09:20 → H.ERHOLD 14:28 → H.TEL 20:35
PROVIDERS: ADMIT Family Medicine; ATTEND Family Medicine
DX: I48.0 Paroxysmal atrial fibrillation (principal); Z79.01 Long term (current) use of anticoagulants; E78.00 Pure hypercholesterolemia, unspecified; Z88.2 Allergy status to sulfonamides